=== PATIENT | male | born 1990 | race African-American/Black ===

== ENCOUNTER 2016-06-16 14:30 | Emergency (ER) | payer BC ==
[~2016-06-16] VITALS: Ht 175.3 cm; Wt 78.0 kg
[~2016-06-16 14:30] MED LIST: KEFLEX500 MG PO; LANTUS SUBQ; LEVEMIR FL100 UNIT/2 SQ; NORCO 5-325 TA1 EACH PO; NOVOLOG FL100 UNIT/M SC
[2016-06-16 15:43] LABS: ABSOLUTE NEUTROPHILS 4.6 thou/uL (1.4-8.2); BASOPHILS 0.8 % (0.0-2.0); EOSINOPHILS 1.1 % (0.0-3.0); LYMPHOCYTES 21.7 % (24.0-44.0); MANUAL DIFF NO; MCH 29.8 pg (26.0-34.0); MCV 84.9 fL (80.0-100.0); MONOCYTES 5.7 % (1.0-8.0); PLATELET COUNT 203 thou/uL (150-400); POLYS 70.7 % (36.0-66.0); RBC 4.36 mil/uL (4.50-6.00); RDW 12.9 % (10.5-14.5); WBC 6.5 thou/uL (4.0-11.0)
[2016-06-16 16:11] LABS: CALCIUM 8.8 mg/dL (8.5-10.1); CREATININE 1.3 mg/dL (0.6-1.3); POTASSIUM 4.7 mmol/L (3.5-5.1)
[2016-06-16 16:16] LABS: ALBUMIN 3.5 g/dL (3.4-5.0); TOTAL BILIRUBIN 0.8 mg/dL (<0.1-1.0); TOTAL PROTEIN 7.1 g/dL (6.4-8.2)
[2016-06-16 17:41] VITALS: BP 140/80
== END 2016-06-16 17:41 | disposition home or self-care (01) ==
LOC: ER 14:30
PROVIDERS: Nurse Practitioner Family
DX: E10.65 Type 1 diabetes mellitus with hyperglycemia (principal); E87.1 Hypo-osmolality and hyponatremia; S91.101A Unspecified open wound of right great toe without damage to nail, initial encounter; X58.XXXA Exposure to other specified factors, initial encounter; Y93.89 Activity, other specified; Y92.89 Other specified places as the place of occurrence of the external cause; Y99.8 Other external cause status